=== PATIENT | female | born 2000 | race African-American/Black ===

== ENCOUNTER 2023-08-28 13:12 | Emergency (ER) | payer OTHER ==
[~2023-08-28] VITALS: Ht 167.6 cm; Wt 74.5 kg
[2023-08-28] MEDS: IBUPROFEN 600MG TAB PO ONE (15:21)
[2023-08-28] MEDS ORDERED: CIPR-249 PO (17:44)
[2023-08-28] MEDS: CIPROFLOXACIN 500MG TABLET PO ONE (17:47)
[2023-08-28 17:54] VITALS: BP 115/66; TEMP 98.4; O2SAT 100
== END 2023-08-28 17:58 | disposition home or self-care (01) ==
LOC: M ED 13:12
DX: L03.114 Cellulitis of left upper limb (principal); S60.552A Superficial foreign body of left hand, initial encounter; Y92.9 Unspecified place or not applicable; Y93.9 Activity, unspecified; Y99.0 Civilian activity done for income or pay; Z79.1 Long term (current) use of non-steroidal anti-inflammatories (NSAID)